=== PATIENT | female | born 1940 | race Caucasian/White ===

== ENCOUNTER 2019-02-20 18:15 | Emergency (ER) | payer MEDICARE, OTHER ==
[~2019-02-20] VITALS: Ht 152.4 cm; Wt 81.6 kg
--- NOTE | 2019-02-20 18:22 | NUR ---
pt bibra from home to er bed 01 c/o diffuse abdominal pain, nausea and vomiting since yesterday. dysuria endorsed by caregiver as well. pt gowned and placed on monitor. awaiting md conley.
--- NOTE | 2019-02-20 18:48 | NUR ---
dr esquivel at bedside for eval.
[2019-02-20] MEDS ORDERED: ACETAMINOPHEN ES 500 MG TABLET ONE (18:59)
[2019-02-20] MEDS ORDERED: ACETAMINOPHEN ES 500 MG TABLET PO ONE (19:00)
[2019-02-20 19:04] LABS: BASOPHILS % (AUTO) 0.4 % (0.0-2.0); EOSINOPHILS % (AUTO) 0.5 % (0.0-6.0); HEMATOCRIT 45 % (33-45); HEMOGLOBIN 15.1 g/dL (11.5-14.8); LYMPHOCYTES # (AUTO) 1.3 /CMM (0.8-4.8); LYMPHOCYTES % (AUTO) 13.7 % (20.0-44.0); MEAN CORPUSCULAR HGB CONC 33 g/dl (31.0-36.0); MEAN CORPUSCULAR VOLUME 86 fL (82-100); MONOCYTES % (AUTO) 10.2 % (2.0-12.0); NEUTROPHILS # (AUTO) 7.2 /CMM (1.8-8.9); NEUTROPHILS % (AUTO) 75.2 % (43.0-81.0); PLATELET COUNT (AUTO) 423 /CMM (150-450); WHITE BLOOD COUNT (AUTO) 9.5 K/uL (4.3-11.0)
[2019-02-20] MEDS: IV NS 0.9% 500 ML BAG IV ONE ×2 (19:07→19:08)
--- NOTE | 2019-02-20 19:11 | NUR ---
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
[2019-02-20 19:15] LABS: CALCIUM, SERUM 9.1 mg/dL (8.5-10.1); CREATININE 0.8 mg/dL (0.6-1.3); POTASSIUM 3.7 mmol/L (3.5-5.1)
[2019-02-20 19:25] LABS: APPEARANCE,URINE Cloudy (CLEAR); BILIRUBIN,URINE Negative (NEGATIVE); BLOOD, URINE Moderate Ery/uL (NEGATIVE); COLOR,URINE Yellow (YELLOW); KETONES,URINE Negative (NEGATIVE); LEUKOCYTE ESTERASE ,URINE Large (NEGATIVE); NITRITE, URINE Positive (NEGATIVE); PH,URINE 5.5 (5.0-8.0); PROTEIN,URINE 100 mg/dl (NEGATIVE); UGLUCOSE Negative (NEGATIVE); UROBILINOGEN,URINE 0.2 EU/dL (0.2)
[2019-02-20 19:29] LABS: ALBUMIN 3.1 g/dL (3.4-5.0); BILIRUBIN,DIRECT 0.1 mg/dL (0.0-0.2); BILIRUBIN,TOTAL 0.6 mg/dL (0.2-1.0); TOTAL PROTEIN, SERUM 6.9 g/dL (6.4-8.2)
[2019-02-20 19:31] LABS: BACTERIA,URINE 3+ /HPF (None Seen); RBC,URINE 21-50 /HPF (0-2); SQUAMOUS EPITHELIAL CELL,UR Few /HPF (None Seen); WBC,URINE 51-80 /HPF (0-3)
--- NOTE | 2019-02-20 19:58 | NUR ---
PT RESTING COMFORTABLY IN BED 1. NOT IN ANY DISTRESS. BREATHING EVENLY AND UNLABORED. CONNECTED TO THE MONITOR. FAMILY MEMBER AT BEDSIDE. CALL LIGHT WITHIN REACH.
--- NOTE | 2019-02-20 20:20 | NUR ---
IV removed. Catheter intact and site benign. Pressure and 4x4 applied to site. No bleeding noted.Patient discharged to home in stable condition. Written and verbal after care instructions given. Patient verbalizes understanding of instruction.
--- NOTE | 2019-02-20 20:29 | NUR ---
Provided with prescriptions.
[2019-02-20 20:30] VITALS: BP 131/69
--- NOTE | 2019-02-20 20:39 | NUR ---
VERBAL ORDER TO GIVE PATIENT ZOFRAN 4MG ODT PO. WILL CARRY OUT ORDERS.
[2019-02-20] MEDS ORDERED: ONDANSETRON 4 MG TAB.RAPDIS ONE (20:40)
--- NOTE | 2019-02-20 20:42 | NUR ---
ORDERS CARRIED OUT. PATIENT MEDICATED.
--- NOTE | 2019-02-20 20:58 | NUR ---
[facility] CALLED ETA 2230. #[id number]
[2019-02-20] MEDS ORDERED: ONDANSETRON 4 MG TAB.RAPDIS SL ONE (21:00)
--- NOTE | 2019-02-20 22:46 | NUR ---
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 REPORT GIVEN FOR JENNIFER.
== END 2019-02-20 20:30 | disposition home or self-care (01) ==
LOC: ER 18:23
DX: N39.0 Urinary tract infection, site not specified (principal); I11.9 Hypertensive heart disease without heart failure; E78.00 Pure hypercholesterolemia, unspecified; E66.01 Morbid (severe) obesity due to excess calories; Z68.35 Body mass index [BMI] 35.0-35.9, adult; Z98.890 Other specified postprocedural states; Z86.73 Personal history of transient ischemic attack (TIA), and cerebral infarction without residual deficits
CPT/HCPCS: 36415; 71045; 80048; 80076; 81001; 83605; 83690; 85025; 87040; 87077; 87086; 87186; 99284; J7040; Q0162; 81000-TC